=== PATIENT | female | born 1970 | race Caucasian/White ===

== ENCOUNTER 2022-11-16 15:48 | Outpatient (REF) | payer OTHER, SELFPAY ==
--- NOTE | ~2022-11-16 | MM_ITS ---
EXAMINATION: MM SCREENING DIGITAL BREAST TOMOSYNTHESIS, BILATERAL CLINICAL INFORMATION: Screening. Asymptomatic. Bilateral reduction mammoplasty since prior imaging 2019. The lifetime risk of breast cancer based on the Tyrer-Cuzick Model is 13%. COMPARISON: Mammography: 08/09/2019, 08/03/2018, 07/20/2017 TECHNIQUE: Digital breast tomosynthesis is performed in both the craniocaudal and mediolateral oblique views along with computer-aided detection (CAD). Synthesized 2D images are generated from the tomosynthesis. FINDINGS: There are scattered areas of fibroglandular density (ACR BI-RADS breast composition Category b). The breasts are symmetrically decreased in size and there is minor scarring consistent with the reduction mammoplasty. There are no significant masses, abnormal calcifications, or other abnormalities. The axilla are unremarkable. No significant changes. MM/MM tomosynthesis screening BI IMPRESSION: No mammographic evidence of malignancy. ASSESSMENT: BI-RADS 2: Benign RECOMMENDATION: Routine annual mammography screening. This patient's information was entered into a reminder system with a target due date for their next mammogram.
== END 2022-11-16 15:49 | disposition home or self-care (01) ==
LOC: HO.MAMMO 15:48
PROVIDERS: PCP Family Medicine; Visit Provider Family Medicine
DX: Z12.31 Encounter for screening mammogram for malignant neoplasm of breast (principal)
CPT/HCPCS: 77063; 77067